=== PATIENT | male | born 1955 | race Caucasian/White ===

== ENCOUNTER 2017-12-15 15:00 | Emergency (ER) | payer OTHER ==
[~2017-12-15] VITALS: Ht 170.2 cm; Wt 77.1 kg
[2017-12-15 15:39] LABS: *BILIRUBIN,URIN NEGATIVE (NEGATIVE); *BLOOD, URINE NEGATIVE (NEGATIVE); *CLARITY,URINE CLEAR (CLEAR); *COLOR,URINE YELLOW (YELLOW); *KETONES,URINE NEGATIVE (NEGATIVE); *PROTEIN,URINE 1+ (NEGATIVE); *UROBILINOGEN,URINE 0.2 E.U./dl (NORMAL); LEUKOCYTE ESTERASE ,URINE NEGATIVE (NEGATIVE); NITRITE, URINE NEGATIVE (NEGATIVE); PH,URINE 5.5 (5.0-8.0); UGLUCOSE NEGATIVE (NEGATIVE)
[2017-12-15 15:45] LABS: MUCUS,URINE MANY /LPF (0-FEW); RBC,URINE 0-3 /HPF (0-3)
[2017-12-15] MEDS ORDERED: LEVOFLOXACIN 750 MG TABLET PO ONE (15:45)
[2017-12-15] MEDS ORDERED: PHENAZOPYRIDINE HCL 100 MG TABLET PO ONE (15:45)
[2017-12-15] MEDS ORDERED: LEVOFLOXACIN 750 MG TABLET ONE (15:56)
[2017-12-15] MEDS ORDERED: PHENAZOPYRIDINE HCL 100 MG TABLET ONE (15:56)
[2017-12-15] MEDS ORDERED: CIPROFLOXACIN HCL 250 MG TABLET PO ONE (16:00)
[2017-12-15] MEDS ORDERED: CIPROFLOXACIN HCL 250 MG TABLET ONE (16:06)
--- NOTE | 2017-12-15 16:07 | NUR ---
Patient discharged to home in stable conditon. Written and verbal after care instructions given to patient. Patient verbalizes understanding of instructions.
== END 2017-12-15 16:09 | disposition home or self-care (01) ==
LOC: ER 15:05
DX: N41.9 Inflammatory disease of prostate, unspecified (principal)
CPT/HCPCS: 87086; A4663

== ENCOUNTER 2018-01-26 16:16 | Emergency (ER) | payer OTHER ==
[~2018-01-26] VITALS: Ht 172.7 cm; Wt 77.1 kg
[2018-01-26] MEDS ORDERED: TYLENOL PO (16:31)
[2018-01-26 16:46] LABS: *BILIRUBIN,URIN NEGATIVE (NEGATIVE); *BLOOD, URINE Trace-lysed (NEGATIVE); *COLOR,URINE DARK YELLOW (YELLOW); *KETONES,URINE 1+ (NEGATIVE); *PROTEIN,URINE NEGATIVE (NEGATIVE); *UROBILINOGEN,URINE 0.2 E.U./dl (NORMAL); LEUKOCYTE ESTERASE ,URINE TRACE (NEGATIVE); NITRITE, URINE NEGATIVE (NEGATIVE); PH,URINE 5.5 (5.0-8.0); UGLUCOSE NEGATIVE (NEGATIVE)
[2018-01-26 16:52] LABS: *CLARITY,URINE SLIGHTLY HAZY (CLEAR)
[2018-01-26 16:53] LABS: MUCUS,URINE MANY /LPF (0-FEW)
[2018-01-26] MEDS ORDERED: ACETAMINOPHEN ES 500 MG TABLET PO ONE (17:45)
[2018-01-26 18:10] LABS: BASOPHILS % (AUTO) 0.3 % (0.0-2.0); HEMATOCRIT 49.7 % (36.7-47.1); HEMOGLOBIN 16.5 g/dL (12.5-16.3); LYMPHOCYTES # (AUTO) 0.3 K/uL (20.0-40.0); LYMPHOCYTES % (AUTO) 3.9 % (20.5-51.5); MEAN CORPUSCULAR HGB CONC 33 g/dL (32.5-36.3); MEAN CORPUSCULAR VOLUME 90.2 fL (73.0-96.2); MONOCYTES # (AUTO) 0.5 K/uL (2.0-10.0); MONOCYTES % (AUTO) 6.5 % (0.0-11.0); NEUTROPHILS # (AUTO) 6.2 K/uL (1.8-8.9); NEUTROPHILS % (AUTO) 89.3 % (38.5-71.5); PLATELET COUNT (AUTO) 154 K/uL (152-348); RED BLOOD CELL COUNT(AUTO) 5.51 MIL/uL (4.06-5.63)
[2018-01-26 18:25] LABS: BILIRUBIN,DIRECT 0.2 mg/dL (0.0-0.2); CREATININE 1.2 mg/dL (0.6-1.3); POTASSIUM 3.7 mmol/L (3.5-5.1); TOTAL PROTEIN, SERUM 8.4 g/dL (6.4-8.2)
--- NOTE | 2018-01-26 18:39 | NUR ---
PT IS IN ROOM # 1B. DR CHI EVALUATED THE PT.
[2018-01-26] MEDS ORDERED: ACETAMINOPHEN ES 500 MG TABLET ONE (18:40)
--- NOTE | 2018-01-26 18:59 | NUR ---
REPORT GIVEN TO CARGO AND CONTAINER INSPECTORCALL PERSON.
--- NOTE | 2018-01-26 19:35 | NUR ---
Patient discharged to home in stable conditon. Written and verbal after care instructions given. Patient verbalizes understanding of instructions. Pt ambulated out of ER in steady gait accompanied by daughter. All belongings with pt. VSS. NAD noted.
[2018-01-26 19:36] VITALS: BP 133/74
== END 2018-01-26 19:36 | disposition home or self-care (01) ==
LOC: ER 16:18
DX: R50.9 Fever, unspecified (principal); R05 Cough; R51 Headache; K21.9 Gastro-esophageal reflux disease without esophagitis
CPT/HCPCS: 36415; 71045; 80048; 80076; 81001; 83605; 84484; 85025; 87040 ×2; 87086; 87400; 93005; 99285; A4663; A9150; 70030-TC

== ENCOUNTER 2018-02-09 13:01 | Emergency (ER) | payer OTHER ==
[~2018-02-09] VITALS: Ht 172.7 cm; Wt 77.1 kg
[~2018-02-09 13:01] MED LIST: TYLENOL PO
--- NOTE | 2018-02-09 13:10 | NUR ---
Note mustapha in EDM - 02/09/18 at 1332 by SRINIVAS Patient discharged to home in stable conditon. Written and verbal after care instructions given. Patient and mother verbalize understanding of instructions.pt walks in steady gait, smiling, no sign of distress.
[2018-02-09 13:21] LABS: *BILIRUBIN,URIN 2+ (NEGATIVE); *BLOOD, URINE 1+ (NEGATIVE); *CLARITY,URINE CLEAR (CLEAR); *COLOR,URINE YELLOW (YELLOW); *KETONES,URINE NEGATIVE (NEGATIVE); *PROTEIN,URINE NEGATIVE (NEGATIVE); *UROBILINOGEN,URINE 0.2 E.U./dl (NORMAL); LEUKOCYTE ESTERASE ,URINE NEGATIVE (NEGATIVE); NITRITE, URINE NEGATIVE (NEGATIVE); UGLUCOSE NEGATIVE (NEGATIVE)
[2018-02-09 13:24] LABS: BACTERIA,URINE FEW /HPF (NONE SEEN); SQUAMOUS EPITHELIAL CELL,UR FEW /HPF (NONE SEEN); WBC,URINE 0-3 /HPF (0-3)
[2018-02-09 13:33] VITALS: BP 110/78
== END 2018-02-09 13:34 | disposition home or self-care (01) ==
LOC: ER 13:01
DX: N41.9 Inflammatory disease of prostate, unspecified (principal)
CPT/HCPCS: 87086; A4663